=== PATIENT | male | born 1985 | race Caucasian/White ===

== ENCOUNTER 2021-08-10 13:01 | Emergency (ER) | payer OTHER ==
[~2021-08-10] VITALS: Ht 182.9 cm; Wt 94.5 kg
[2021-08-10 13:10] VITALS: BP 163/105
[2021-08-10] MEDS ORDERED: METF-346 PO (13:14)
--- NOTE | 2021-08-10 13:15 | NUR ---
PT TO ER BED 2 VIA W/C
--- NOTE | 2021-08-10 13:45 | NUR ---
Marley boyce in [facility] - 08/10/21 at 1351 by PHSEP PT TAKEN TO CT VIA WHEELCHAIR
--- NOTE | 2021-08-10 13:45 | NUR ---
PT TAKEN TO XRAY VIA WHEELCHAIR
--- NOTE | 2021-08-10 13:51 | NUR ---
36YO MALE PT C/O R LOWER BACK PAIN THAT RADIATES DOWN TO R HAMSTRING. PT STATES "TIGHT"/"PULLED" 10/10 PAIN WHEN WALKING AND 6/10 PAIN AT REST. PT AMBULATING WITH HUNCHED GAIT AND UNABLE TO STAND UP STRAIGHT. PT DENIES INJURY TO BACK OR LEG. PT STATES TAKING IBUPROFEN , MOTRIN WITH NO RELIEF. ALSO STATES STRETCHING AND TRYING ICY HOT RUB WITH NO RELIEF. DENIES CHEST PAIN, N/V/D OR FEVERS. PT CURRENTLY HUNCHED LEANING OVER BED PER COMFORT. UNABLE TO LAY IN BED. NO VISIBLE INJURY TO BACK OR LEG. PT [id number]. HX: HTN, DIABETES NKA
[2021-08-10] MEDS ORDERED: KETOROLAC 30 MG/ML VIAL IM ONE (14:10)
[2021-08-10] MEDS ORDERED: diazePAM 5 MG TAB PO ONE (14:15)
--- NOTE | 2021-08-10 14:28 | NUR ---
SANG CHRIS AT BEDSIDE
[2021-08-10] MEDS ORDERED: LID5T TP (14:39)
[2021-08-10] MEDS ORDERED: CYCL-711 PO (14:39)
[2021-08-10] MEDS ORDERED: DICL100G5 TP (14:39)
[2021-08-10] MEDS ORDERED: IBUP-2213 PO (14:39)
[2021-08-10 15:00] VITALS: BP 149/98
--- NOTE | 2021-08-10 15:13 | NUR ---
Patient discharged with v/s stable. Written and verbal after care instructions FOR SCIATICA REHAB given and explained. Patient alert, oriented and verbalized understanding of instructions. Ambulatory with steady gait. All questions addressed prior to discharge. ID band removed. Patient advised to follow up with PMD. Rx of FLEXERIL, IBUPROFEN, LIDOCAINE HYD, DICLOFENAC SODIUM given. Opportunity to ask questions provided and answered.
--- NOTE | 2021-08-10 15:14 | NUR ---
Chart checked and completed. The patient's care was reviewed and supervised by Cheyenne Lopes RN.
== END 2021-08-10 15:13 | disposition home or self-care (01) ==
LOC: MED 13:01
DX: M54.41 Lumbago with sciatica, right side (principal); E11.9 Type 2 diabetes mellitus without complications; I10 Essential (primary) hypertension; Z79.84 Long term (current) use of oral hypoglycemic drugs; Z79.899 Other long term (current) drug therapy
CPT/HCPCS: 72100; 96372; 99283; J1885

== ENCOUNTER 2021-08-11 22:19 | Emergency (ER) | payer OTHER ==
[~2021-08-11] VITALS: Ht 182.9 cm; Wt 102.1 kg
[~2021-08-11 22:19] MED LIST: CYCL-711 PO; DICL100G5 TP; IBUP-2213 PO; LID5T TP; METF-346 PO
[2021-08-11] MEDS ORDERED: NACL 0.9% 1,000 ML IV ONE (22:25)
[2021-08-11] MEDS ORDERED: INSULIN REGULAR, HUMAN 100 UNIT/ML VIAL IVP ONE (22:25)
[2021-08-11 22:33] VITALS: BP 158/105
--- NOTE | 2021-08-11 22:33 | NUR ---
Blood for labwork drawn from right arm per beer still runner compounder. Patient tolerated well.
--- NOTE | 2021-08-11 22:39 | NUR ---
PT TAKEN TO BED 3
[2021-08-11] MEDS ORDERED: KETOROLAC 60 MG/2 ML VIAL IM ONE (22:45)
[2021-08-11] MEDS ORDERED: MORPHINE SULFATE 4 MG/ML SYR IM ONE (22:45)
--- NOTE | 2021-08-11 23:07 | NUR ---
PT TAKEN TO CT
--- NOTE | 2021-08-11 23:08 | NUR ---
36/M BIB SELF C/O RIGHT LOWER BACK PAIN RAD TO THE RIGHT LOWER KNEE X4DAYS. PATIENT STATED THAT PAIN IS 10/10 AND SHARP. PATIENT WAS IN THE ER YESTERDAY AND DX WITH SCIATICA BUT PAIN WORSEN WITH NO RELIEF. PAIN STATED THAT HES HAD SCIATIC PAIN IN THE PAST BUT NOT THIS SEVERE. PATIENT AMBULATES WITH A LIMP DUE TO PAIN TO LOWER BACK. RR ARE EVEN AND UNLABORED. BED LOW AND LOCKED. SIDE RAILS UP FOR SAFETY. ALL NEEDS MET. PAIN MEDS GIVEN ORDERED. PMHX DM, HTN NKA
--- NOTE | 2021-08-12 | NUR ---
PATIENT STATED THAT PAIN RETURNED 10/10 ON THE LOWER BACK AND FELT SHARP AT THIS TIME. MADE AWARE.
[2021-08-12] MEDS ORDERED: MORPHINE SULFATE 4 MG/ML SYR IM ONE (00:10)
[2021-08-12] MEDS ORDERED: NAPR-54 PO (00:44)
--- NOTE | 2021-08-12 00:47 | NUR ---
Dr. Lee examining patient.
[2021-08-12] MEDS ORDERED: MORPHINE SULFATE 4 MG/ML SYR IVP ONE (00:50)
[2021-08-12] MEDS ORDERED: KETOROLAC 30 MG/ML VIAL IVP ONE (00:50)
[2021-08-12] MEDS ORDERED: NACL 0.9% 1,000 ML IV ONE (00:50)
--- NOTE | 2021-08-12 01:00 | NUR ---
PATIENT STATED THAT PAIN CONTINUES TO BE 9/10 AND SHARP. MD AWARE. ORDERS CARRIED OUT
--- NOTE | 2021-08-12 01:03 | NUR ---
20G IV ESTABLISHED ON LEFT FA
--- NOTE | 2021-08-12 02:10 | NUR ---
PATIENT STATED THAT PAIN IS 5/10 AND TOLERABLE. MD ELIZABETH
[2021-08-12 02:50] VITALS: BP 136/89
--- NOTE | 2021-08-12 02:50 | NUR ---
IV removed, catheter intact and site benign. Applied folded 4x4 gauze and tape to stop bleeding.
--- NOTE | 2021-08-12 02:50 | NUR ---
Note albinone in EDM - 08/12/21 at 0346 by KEVIN Patient discharged with v/s stable. Written and verbal after care instructions given Sciatica and explained. Patient alert, oriented and verbalized understanding of instructions. Ambulatory with steady gait. All questions addressed prior to discharge. ID band removed. Patient advised to follow up with PMD. Rx of Naproxen given. Patient educated on indication of medication including possible reaction and side effects by Md Lee. Opportunity to ask questions provided and answered.
--- NOTE | 2021-08-12 03:49 | NUR ---
Chart checked completed.
== END 2021-08-12 02:50 | disposition home or self-care (01) ==
LOC: MED 22:19
DX: M54.41 Lumbago with sciatica, right side (principal); E11.9 Type 2 diabetes mellitus without complications; Z79.84 Long term (current) use of oral hypoglycemic drugs
CPT/HCPCS: 72131; 96361; 96372; 96374; 96375; 99284; J1885; J2270; J7030; J1815